=== PATIENT | female | born 1970 | race Two or more races ===

== ENCOUNTER 2021-05-16 21:29 | Emergency (ER) | payer MEDICAID, OTHER ==
[~2021-05-16] VITALS: Ht 160 cm; Wt 136.1 kg
[~2021-05-16 21:29] MED LIST: ACE3T; IRONTAB35
[2021-05-17 04:30] VITALS: BP 171/77
== END 2021-05-17 05:50 | disposition home or self-care (01) ==
LOC: ER 21:29
DX: M71.21 Synovial cyst of popliteal space [Baker], right knee (principal); E66.01 Morbid (severe) obesity due to excess calories; E11.9 Type 2 diabetes mellitus without complications; Z68.43 Body mass index [BMI] 50.0-59.9, adult; Z88.8 Allergy status to other drugs, medicaments and biological substances
CPT/HCPCS: 73562